=== PATIENT | female | born 1960 | race Caucasian/White ===

== ENCOUNTER 2019-05-15 11:49 | Observation (INO) ==
[2019-05-15] MEDS ORDERED: KETOROLAC 60 MG/2 ML VIAL IM STA (13:46)
[2019-05-15] MEDS ORDERED: ORPHENADRINE 60 MG/2 ML VIAL IM STA (13:46)
[2019-05-15 15:01] LABS: Basophils % 0.1 % (0.0-0.8); Eosinophils % 0.1 % (0.00-10.9); Hemoglobin 14.3 GM/DL (12.0-16.0); Immature Granulocytes % 0.3 %; Immature Granulocytes Absolute 0.02 #; Lymphocytes # 1.6 10*3/uL (1.4-4.0); Lymphocytes % 20.6 % (21.3-54.2); Mean Corpuscular Volume 98.8 FL (87-102); Mean Platelet Volume 8.8 FL (9.6-12.0); Monocytes % 4.6 % (1.7-12.7); Neutrophils % 74.3 % (38.7-73.9); Platelet Count 292 T/CUMM (130-400); Red Blood Count 4.25 MC/CUMM (3.8-5.5); Red Cell Distribution Width 12.9 % (9.3-17.3)
[2019-05-15 15:09] LABS: Apearance,Urine CLEAR (Clear); Bacteria,Urine Occasional /HPF (Few); Bilirubin,Urine Negative (Negative); Blood, Urine Moderate mg/dL (Negative); Glucose,Urine (UA) Negative (Negative); Hyaline Casts,Urine 6 /LPF (0-3); Ketones,Urine 5 mg/dL (Negative); Mucus,Urine Occasional /LPF (Occasional); Nitrite,Urine Negative (Negative); Protein,Urine Negative; RBC,Urine 25 /HPF (0-4); Squamous Epithelial Cell,Urine Occasional /HPF (0-10); Urine Color Yellow (Yellow); Urine Specific Gravity 1.021 (1.001-1.035); Urine Urobilinogen < 2.0 EU/DL (0.2-1.0); WBC,Urine 5 /HPF (0-6)
[2019-05-15 15:30] LABS: Albumin 4.5 G/DL (3.4-5.0); Bilirubin,Total 1.3 MG/DL (0.2-1.0); Calcium 9.6 MG/DL (8.5-10.1); Osmolality,Calculated 287.1 MOS/KG (273-304); Total Protein 8.2 G/DL (6.4-8.3)
[2019-05-15] MEDS: HYDROmorphone 2 MG/1 ML VIAL IM PRN ×2 (19:02→23:43)
[2019-05-15] MEDS ORDERED: hydrALAZINE 20 MG/1 ML VIAL IV PRN (20:01)
[2019-05-15] MEDS ORDERED: LORazepam 0.5 MG TABLET PO PRN (20:02)
[2019-05-15] MEDS: DOCUSATE SODIUM 100 MG CAPSULE PO SCH (21:01)
[2019-05-15] MEDS: ESCITALOPRAM 10 MG TABLET PO SCH (21:01)
[2019-05-16] MEDS: HYDROmorphone 2 MG/1 ML VIAL IM PRN ×5 (04:17→21:20)
[2019-05-16] MEDS: DOCUSATE SODIUM 100 MG CAPSULE PO SCH ×2 (08:27→21:21)
[2019-05-16] MEDS: ENALAPRIL 5 MG TABLET PO SCH (08:27)
[2019-05-16] MEDS: hydroCHLOROthiazide 12.5 MG CAPSULE PO SCH (08:27)
[2019-05-16] MEDS: ROSUVASTATIN 20 MG TABLET PO SCH (08:27)
[2019-05-16] MEDS: PANTOPRAZOLE 40 MG TABLET PO SCH (08:28)
[2019-05-16] MEDS ORDERED: hydrALAZINE 25 MG TABLET PO SCH (15:00)
[2019-05-16] MEDS: ESCITALOPRAM 10 MG TABLET PO SCH (21:21)
[2019-05-16] MEDS: ACETAMINOPHEN 325 MG TABLET PO PRN (23:32)
[2019-05-16] MEDS: ONDANSETRON 4 MG/2 ML VIAL IV PRN (23:33)
[2019-05-17] MEDS: HYDROmorphone 2 MG/1 ML VIAL IM PRN ×4 (01:15→13:29)
[2019-05-17] MEDS ORDERED: NICOTINE 21 MG/24 HR PATCH TRANSDERM SCH (09:00)
[2019-05-17] MEDS: ACETAMINOPHEN 325 MG TABLET PO PRN (09:11)
[2019-05-17] MEDS: DOCUSATE SODIUM 100 MG CAPSULE PO SCH (09:11)
[2019-05-17] MEDS: ROSUVASTATIN 20 MG TABLET PO SCH (09:12)
[2019-05-17] MEDS: ENALAPRIL 5 MG TABLET PO SCH (09:12)
[2019-05-17] MEDS: hydroCHLOROthiazide 12.5 MG CAPSULE PO SCH (09:12)
[2019-05-17] MEDS: ONDANSETRON 4 MG/2 ML VIAL IV PRN (09:13)
[2019-05-17] MEDS: PANTOPRAZOLE 40 MG TABLET PO SCH (09:15)
[2019-05-17 12:14] VITALS: BP 134/70
== END 2019-05-17 14:40 | disposition home or self-care (01) ==
LOC: N.ED 11:49 → N.EDINP 11:49 → N.2W 17:38
PROVIDERS: ADMIT Family Medicine; ATTEND Family Medicine